=== PATIENT | female | born 1985 | race Caucasian/White ===

== ENCOUNTER 2016-11-06 06:07 | Inpatient (IN) | payer BC, OTHER ==
[2016-11-06] MEDS: LACTATED RINGERS 1,000 ML IV SCH ×2 (06:20→11:55)
[2016-11-06 06:47] LABS: Basophils % (A) 0 %; CH 33.1; CHCM 35.1; Eosinophils # (A) 0.2 k/uL (0-0.7); Eosinophils % (A) 2 %; HCT 39.9 % (34.0-46.0); HDW 2.38; HGB 13.6 gm/dL (11.4-16.0); Luc % (Auto) 1; Lymphocytes # (A) 1.8 k/uL (1.0-4.8); Lymphocytes % (A) 17 %; MCH 32.4 pg (25.0-35.0); MCHC 34.1 g/dL (31.0-37.0); MCV 94.9 fL (80.0-100.0); Monocytes # (A) 0.5 k/uL (0-1.0); Monocytes % (A) 5 %; Neutrophils % (A) 76 %; RDW 12.9 % (11.5-15.5); WBC 10.7 k/uL (3.8-10.6); WBC (Perox) 11.13
[2016-11-06] MEDS ORDERED: HYDROmorphone 1 MG/ML 1 ML SYRINGE IVP PRN (06:58)
[2016-11-06] MEDS: ACETAMINOPHEN TAB 325 MG TAB PO PRN ×2 (07:02→13:28)
[2016-11-06] MEDS: DIPHENOX-ATROP 2.5-0.025 MG 1 EACH TAB PO PRN ×2 (07:03→13:30)
[2016-11-06] MEDS: ONDANSETRON 4 MG/2 ML VIAL IVP PRN ×2 (07:03→13:27)
[2016-11-06] MEDS: CARBOPROST TROMETHAMINE 250 MCG/ML 1 ML AMP IM SCH ×5 (07:04→15:30)
[2016-11-06] MEDS: HYDROmorphone 1 MG/ML 1 ML SYRINGE IVP PRN ×3 (09:53→13:50)
[2016-11-06 13:54] LABS: Prothrombin Time 10.5 sec (9.0-12.0)
--- NOTE | 2016-11-06 16:55 | P.HPOB ---
History of Present Illness H&P Date: 11/06/16 Chief Complaint: demise 31 year old presents at 19 weeks by dates but 16 weeks by US with no heart tones. She is here for induction of labor. She had laminara placed yesterday afternoon and today she is FT-1/50/-3. Review of Systems All systems: negative Constitutional: Denies chills, Denies fever Eyes: denies blurred vision, denies pain Ears, nose, mouth and throat: Denies headache, Denies sore throat Cardiovascular: Denies chest pain, Denies shortness of breath Respiratory: Denies cough Gastrointestinal: Denies abdominal pain, Denies diarrhea, Denies nausea, Denies vomiting Genitourinary: Denies dysuria, Denies hematuria Musculoskeletal: Denies myalgias Integumentary: Denies pruritus, Denies rash Neurological: Denies numbness, Denies weakness Psychiatric: Denies anxiety, Denies depression Endocrine: Denies fatigue, Denies weight change Past Medical History Additional Past Medical History / Comment(s): smoker. OB history: she has had 2 c-sections and one elective termination. This is her fourth and she has had care with me since 11 weeks. B neg, abs neg, Rub Imm, RPR NR, Hep B neg, HIV NR. History of Any Multi-Drug Resistant Organisms: None Reported Past Surgical History: Appendectomy, Breast Surgery, Section Past Anesthesia/Blood Transfusion Reactions: No Reported Reaction Past Psychological History: No Psychological Hx Reported Smoking Status: Current every day smoker Past Alcohol Use History: None Reported Past Drug Use History: None Reported - Past Family History Mother Family Medical History: No Reported History Medications and Allergies Home Medications Medication Instructions Recorded Confirmed Type No Known Home Medications [No 11/06/16 11/06/16 History Known Home Medications] Allergies Allergy/AdvReac Type Severity Reaction Status Date / Time No Known Allergies Allergy Verified 11/06/16 06:11 Exam Osteopathic Statement: *. No significant issues noted on an osteopathic structural exam other than those noted in the History and Physical/Consult. - Vital Signs Vital signs: Vital Signs Temp Pulse Resp BP 11/06/16 06:15 98.4 F 87 18 140/78 Intake and Output 11/06/16 11/06/16 11/06/16 06:59 14:59 22:59 Other: # Voids 1 Weight 70.307 kg HEart: RRR Lungs: CTAB Abdomen: soft, nontender Extremeties: neg ranjeet's Results Result Diagrams: 11/06/16 06:15 Abnormal Lab Results - Last 24 Hours (Table) 11/06/16 Range/Units 06:15 WBC 10.7 H (3.8-10.6) k/uL Neutrophils # 8.0 H (1.3-7.7) k/uL Assessment and Plan (1) demise before 22 weeks with retention of fetus Status: Acute Plan: 1. admit to [facility] 2. hemobate induction of labor.
[2016-11-06] MEDS ORDERED: HYDROCORTISONE 2.5% RECTAL CREAM 30 GM TUBE RECTAL PRN (16:58)
[2016-11-06] MEDS ORDERED: BENZOCAINE/MENTHOL SPRAY 1 GM/SPRAY AEROSOL TOPICAL PRN (16:58)
[2016-11-06] MEDS ORDERED: ZOLPIDEM 5 MG TAB PO PRN (16:58)
[2016-11-06] MEDS ORDERED: LANOLIN CREAM 5 GM TUBE TOPICAL PRN (16:58)
[2016-11-06] MEDS ORDERED: WITCH HAZEL 1 EACH MED..PAD TOPICAL PRN (16:58)
[2016-11-06] MEDS ORDERED: diphenhydrAMINE 25 MG CAP PO PRN (16:58)
[2016-11-06] MEDS ORDERED: ACETAMINOPHEN TAB 325 MG TAB PO PRN (16:58)
[2016-11-06] MEDS ORDERED: diphenhydrAMINE 50 MG CAP PO PRN (16:58)
[2016-11-06] MEDS ORDERED: Acetaminophen-Codeine 300-30mg TAB PO PRN ×2 (16:58)
[2016-11-06] MEDS ORDERED: SIMETHICONE 80 MG CHEWABLE PO PRN (16:58)
[2016-11-06] MEDS ORDERED: diphenhydrAMINE 50 MG/ML 1 ML VIAL IVP PRN ×2 (16:58)
[2016-11-06] MEDS ORDERED: IBUPROFEN 600 MG TAB PO PRN (16:58)
--- NOTE | 2016-11-06 16:58 | P.PROBDLV ---
Vaginal Delivery Note - . Vaginal Delivery Note: 1-year-old presents for induction of labor at 19 weeks by EDC and 16 weeks by ultrasound for demise. She had an ultrasound in my office last week that showed absent heart tones and again yesterday absent heart tones. She had laminaria placed yesterday and so today her cervix is fingertip to 1 cm dilated, 50% effaced, and -3 station. Hemabate was given along with Tylenol Zofran and Imodium. After a few doses of this and her water did break. I came to evaluate her and when I did so she had some parts in the vagina. She pushed, and delivered a nonviable infant at 1638. The placenta delivered spontaneously intact at 1640. Vagina, cervix, perineum inspected. No lacerations noted. Estimated blood loss 100 mL.
[2016-11-06] MEDS ORDERED: OXYTOCIN 30 UNITS/500 ML NS 30 UNIT in SALINE 1 500ML.BAG IV SCH (17:00)
[2016-11-06] MEDS ORDERED: KETOROLAC 30 MG/ML 1 ML VIAL IVP SCH (18:00)
[2016-11-06 18:14] VITALS: RESP 16
[2016-11-06 18:59] VITALS: BP 110/58; PULSE 74; TEMP 98
[2016-11-06] MEDS ORDERED: Rhogam IMMUNE GLOBULIN 1,500 UNIT/1 ML IM ONE (19:04)
[2016-11-06] MEDS ORDERED: SENNOSIDES-DOCUSATE SODIUM 1 EACH TAB PO SCH (20:00)
--- NOTE | 2017-01-09 08:24 | P.DS ---
Providers Date of admission: 11/06/16 06:07 Expected date of discharge: 11/06/16 Attending physician: Teresa Gonzalez - Discharge Diagnosis(es) (1) demise before 22 weeks with retention of fetus Status: Acute Hospital Course: PAtient presented for induction of labor due to demise at 19 weeks. She underwent a vaginal delivery with no further complications. She was discharged home PPD #0 in stable condition to follow up with me in 6 weeks or earlier if needed. Plan - Discharge Summary New Discharge Prescriptions: Ibuprofen [Motrin] 800 mg PO Q8HR PRN #30 tab PRN Reason: Pain Discharge Medication List Ibuprofen [Motrin] 800 mg PO Q8HR PRN #30 tab 11/06/16 [Rx] Follow up Appointment(s)/Referral(s): Teresa Gonzalez DO [Doctor of Osteopathic Medicine] - 2 Weeks Discharge Disposition: HOME SELF-CARE
== END 2016-11-06 20:05 | disposition home or self-care (01) | DRG 779 ==
LOC: 4FBP 06:07
PROVIDERS: ADMIT Obstetrics & Gynecology; ATTEND Obstetrics & Gynecology
PROC: 10E0XZZ Delivery of Products of Conception, External Approach (ICD-10-PCS; principal; 2016-11-06)
PROC: 3E0234Z Introduction of Serum, Toxoid and Vaccine into Muscle, Percutaneous Approach (ICD-10-PCS; 2016-11-06)
PROC: 3E033VJ Introduction of Other Hormone into Peripheral Vein, Percutaneous Approach (ICD-10-PCS; 2016-11-06)
DX: O02.1 Missed abortion (principal); Z37.1 Single stillbirth; F17.200 Nicotine dependence, unspecified, uncomplicated; O99.332 Smoking (tobacco) complicating pregnancy, second trimester; O34.219 Maternal care for unspecified type scar from previous cesarean delivery; Z3A.19 19 weeks gestation of pregnancy; Z90.49 Acquired absence of other specified parts of digestive tract
CPT/HCPCS: 85025; 85610; 86850; 86900; 86901; 88300; 88305

== ENCOUNTER → 2017-09-11 | Outpatient (CLI) | payer BC | END | disposition home or self-care (01) | LOC: LABWHC1 13:16 | PROVIDERS: ATTEND Obstetrics & Gynecology | DX: Z34.90 Encounter for supervision of normal pregnancy, unspecified, unspecified trimester (principal); Z3A.00 Weeks of gestation of pregnancy not specified | CPT/HCPCS: 36415; 84702 ==

== ENCOUNTER → 2017-09-18 | Outpatient (CLI) | payer BC | END | disposition home or self-care (01) | LOC: LABWHC1 14:06 | PROVIDERS: ATTEND Obstetrics & Gynecology | DX: Z34.90 Encounter for supervision of normal pregnancy, unspecified, unspecified trimester (principal) | CPT/HCPCS: 36415; 84702 ==

== ENCOUNTER → 2018-04-12 | Outpatient (CLI) | payer BC | END | disposition home or self-care (01) | LOC: LABWHC1 15:51 | PROVIDERS: ATTEND Obstetrics & Gynecology | DX: Z34.80 Encounter for supervision of other normal pregnancy, unspecified trimester (principal) | CPT/HCPCS: 36415; 86850; 86900; 86901 ==

== ENCOUNTER 2018-04-13 07:52 | Emergency (ER) | payer BC ==
[2018-04-13 07:58] VITALS: TEMP 98.3
--- NOTE | 2018-04-13 08:22 | ED ---
General Adult HPI - General Chief complaint: Vaginal Bleeding Stated complaint: Vaginal Bleeding- Time Seen by Provider: 04/13/18 08:10 Source: patient, RN notes reviewed Mode of arrival: ambulatory Limitations: no limitations - History of Present Illness Initial comments: Patient G6, P2, 32-year-old female presented to the emergency room today with a chief complaint of vaginal bleeding that started yesterday. Patient does admit that she has some slight spotting yesterday talked her OB and was supposed to follow-up in the office in 2 days. She states spotting was heavier this morning. She does admit that she's had previous miscarriage and a stillborn . Patient states she is Rh-. She denies any abdominal cramping. She denies any other complaints or symptoms at this time. Patient denies any recent fever, chills, shortness of breath, chest pain, back pain, abdominal pain, nausea or vomiting, numbness or tingling, dysuria or hematuria, constipation or diarrhea, headaches or visual changes, or any other complaints. - Related Data Previous Rx's Medication Instructions Recorded Ibuprofen [Motrin] 800 mg PO Q8HR PRN #30 tab 11/06/16 Allergies Allergy/AdvReac Type Severity Reaction Status Date / Time No Known Allergies Allergy Verified 04/13/18 07:58 Review of Systems ROS Statement: Those systems with pertinent positive or pertinent negative responses have been documented in the HPI. ROS Other: All systems not noted in ROS Statement are negative. Past Medical History Additional Past Medical History / Comment(s): smoker. OB history: she has had 2 c-sections and one elective termination. This is her fourth and she has had care with me since 11 weeks. B neg, abs neg, Rub Imm, RPR NR, Hep B neg, HIV NR. History of Any Multi-Drug Resistant Organisms: None Reported Past Surgical History: Appendectomy, Breast Surgery, Section Past Anesthesia/Blood Transfusion Reactions: No Reported Reaction Past Psychological History: No Psychological Hx Reported Smoking Status: Current every day smoker Past Alcohol Use History: None Reported Past Drug Use History: None Reported - Past Family History Mother Family Medical History: No Reported History General Exam - General Exam Comments Initial Comments: General: The patient is awake and alert, in no distress, and does not appear acutely ill. Eye: Pupils are equal, round and reactive to light, extra-ocular movements are intact. No nystagmus. There is normal conjunctiva bilaterally. No signs of icterus. Ears, nose, mouth and throat: There are moist mucous membranes and no oral lesions. Neck: The neck is supple, there is no tenderness or JVD. Cardiovascular: There is a regular rate and rhythm. No murmur, rub or gallop is appreciated. Respiratory: Lungs are clear to auscultation, respirations are non-labored, breath sounds are equal. No wheezes, stridor, rales, or rhonchi. Gastrointestinal: Soft, non-distended, non-tender abdomen without masses or organomegaly noted. There is no rebound or guarding present. No CVA tenderness. Musculoskeletal: Normal ROM, no tenderness. Strength 5/5. Sensation intact. Neurological: A&O x 3. CN II-XII intact, There are no obvious motor or sensory deficits. Coordination appears grossly intact. Speech is normal. Skin: Skin is warm and dry and no rashes or lesions are noted. Psychiatric: Cooperative, appropriate mood & affect, normal judgment. Limitations: no limitations Course Vital Signs 04/13/18 07:54 Temperature 98.3 F Pulse Rate 89 Respiratory 18 Rate Blood Pressure 143/95 O2 Sat by Pulse 100 Oximetry Medical Decision Making - Medical Decision Making Patient's labs are been reviewed. Beta hCG 18,000. Rh-. Patient will be given Rhogam here in the emergency room. Patient's ultrasound does show a single IUP measuring 6 weeks 1 day. No heart tones at this time. Was discussed with patient about the possibility of a miscarriage versus early . Patient will have a repeat beta hCG in 2 days given a prescription for this. Advised follow-up the OB. Advised return if symptoms increase worsen. She states understanding and is in agreement with the plan. - Lab Data Result diagrams: 04/13/18 08:30 04/13/18 08:30 Lab Results 04/13/18 04/13/18 04/13/18 Range/Units 08:30 08:30 08:30 WBC 6.5 (3.8-10.6) k/uL RBC 4.40 (3.80-5.40) m/uL Hgb 14.5 (11.4-16.0) gm/dL Hct 42.5 (34.0-46.0) % MCV 96.6 (80.0-100.0) fL MCH 32.9 (25.0-35.0) pg MCHC 34.1 (31.0-37.0) g/dL RDW 14.4 (11.5-15.5) % Plt Count 198 (150-450) k/uL Neutrophils % 64 % Lymphocytes % 27 % Monocytes % 4 % Eosinophils % 3 % Basophils % 1 % Neutrophils # 4.1 (1.3-7.7) k/uL Lymphocytes # 1.8 (1.0-4.8) k/uL Monocytes # 0.3 (0-1.0) k/uL Eosinophils # 0.2 (0-0.7) k/uL Basophils # 0.0 (0-0.2) k/uL Sodium 140 (137-145) mmol/L Potassium 4.2 (3.5-5.1) mmol/L Chloride 107 (98-107) mmol/L Carbon Dioxide 21 L (22-30) mmol/L Anion Gap 12 mmol/L BUN 6 L (7-17) mg/dL Creatinine 0.40 L (0.52-1.04) mg/dL Est GFR (CKD-EPI)AfAm >90 (>60 ml/min/1.73 sqM) Est GFR (CKD-EPI)NonAf >90 (>60 ml/min/1.73 sqM) Glucose 91 (74-99) mg/dL Calcium 9.7 (8.4-10.2) mg/dL Total Bilirubin 0.5 (0.2-1.3) mg/dL AST 25 (14-36) U/L ALT 47 (9-52) U/L Alkaline Phosphatase 86 (38-126) U/L Total Protein 6.6 (6.3-8.2) g/dL Albumin 4.1 (3.5-5.0) g/dL HCG, Quant mIU/mL Urine Color Light Yellow Urine Appearance Cloudy H (Clear) Urine pH 7.0 (5.0-8.0) Ur Specific [place] 1.005 (1.001-1.035) Urine Protein Negative (Negative) Urine Glucose (UA) Negative (Negative) Urine Ketones Negative (Negative) Urine Blood Large H (Negative) Urine Nitrite Negative (Negative) Urine Bilirubin Negative (Negative) Urine Urobilinogen <2.0 (<2.0) mg/dL Ur Leukocyte Esterase Negative (Negative) Urine RBC <1 (0-5) /hpf Urine WBC 1 (0-5) /hpf Ur Squamous Epith Cells 3 (0-4) /hpf Urine Bacteria Rare H (None) /hpf Urine Mucus Rare H (None) /hpf Blood Type Blood Type Recheck Antibody Screen Spec Expiration Date 04/13/18 04/13/18 Range/Units 08:30 08:30 WBC (3.8-10.6) k/uL RBC (3.80-5.40) m/uL Hgb (11.4-16.0) gm/dL Hct (34.0-46.0) % MCV (80.0-100.0) fL MCH (25.0-35.0) pg MCHC (31.0-37.0) g/dL RDW (11.5-15.5) % Plt Count (150-450) k/uL Neutrophils % % Lymphocytes % % Monocytes % % Eosinophils % % Basophils % % Neutrophils # (1.3-7.7) k/uL Lymphocytes # (1.0-4.8) k/uL Monocytes # (0-1.0) k/uL Eosinophils # (0-0.7) k/uL Basophils # (0-0.2) k/uL Sodium (137-145) mmol/L Potassium (3.5-5.1) mmol/L Chloride (98-107) mmol/L Carbon Dioxide (22-30) mmol/L Anion Gap mmol/L BUN (7-17) mg/dL Creatinine (0.52-1.04) mg/dL Est GFR (CKD-EPI)AfAm (>60 ml/min/1.73 sqM) Est GFR (CKD-EPI)NonAf (>60 ml/min/1.73 sqM) Glucose (74-99) mg/dL Calcium (8.4-10.2) mg/dL Total Bilirubin (0.2-1.3) mg/dL AST (14-36) U/L ALT (9-52) U/L Alkaline Phosphatase (38-126) U/L Total Protein (6.3-8.2) g/dL Albumin (3.5-5.0) g/dL HCG, Quant 25939.7 mIU/mL Urine Color Urine Appearance (Clear) Urine pH (5.0-8.0) Ur Specific [place] (1.001-1.035) Urine Protein (Negative) Urine Glucose (UA) (Negative) Urine Ketones (Negative) Urine Blood (Negative) Urine Nitrite (Negative) Urine Bilirubin (Negative) Urine Urobilinogen (<2.0) mg/dL Ur Leukocyte Esterase (Negative) Urine RBC (0-5) /hpf Urine WBC (0-5) /hpf Ur Squamous Epith Cells (0-4) /hpf Urine Bacteria (None) /hpf Urine Mucus (None) /hpf Blood Type B Negative Blood Type Recheck No Antibody Screen NEGATIVE Spec Expiration Date 04/16/20182329 Disposition Clinical Impression: Threatened miscarriage Disposition: HOME SELF-CARE Condition: Good Instructions: Threatened Miscarriage (ED) Additional Instructions: Please have repeat blood draw in 2 days. Please follow-up with [facility] over the next 2 days. Please return to the emergency room symptoms increase or worsen or for any other concerns. Is patient prescribed a controlled substance at d/c from ED?: No Referrals: Amie Mcgarry MD [Primary Care Provider] - 1-2 days Teresa Gonzalez DO [Doctor of Osteopathic Medicine] - 1-2 days Time of Disposition: 10:24
[2018-04-13 08:47] LABS: Basophils % (A) 1 %; Eosinophils # (A) 0.2 k/uL (0-0.7); Eosinophils % (A) 3 %; HCT 42.5 % (34.0-46.0); HGB 14.5 gm/dL (11.4-16.0); Lymphocytes # (A) 1.8 k/uL (1.0-4.8); Lymphocytes % (A) 27 %; MCH 32.9 pg (25.0-35.0); MCHC 34.1 g/dL (31.0-37.0); MCV 96.6 fL (80.0-100.0); Mean Platelet Volume 7.5; Monocytes # (A) 0.3 k/uL (0-1.0); Monocytes % (A) 4 %; Neutrophils # (A) 4.1 k/uL (1.3-7.7); Neutrophils % (A) 64 %; Platelet Count 198 k/uL (150-450); RDW 14.4 % (11.5-15.5); WBC 6.5 k/uL (3.8-10.6)
[2018-04-13 08:55] LABS: Appearance,Urine Cloudy (Clear); Bacteria,Urine Rare /hpf; Bilirubin,Urine Negative (Negative); Blood,Urine Large (Negative); Color,Urine Light Yellow; Glucose,Urine (UA) Negative (Negative); Ketones,Urine Negative (Negative); Leukocyte Esterase,Urine Negative (Negative); Mucus,Urine Rare /hpf; Nitrite,Urine Negative (Negative); Protein,Urine Negative (Negative); RBC,Urine <1 /hpf (0-5); Specific Gravity,Urine 1.005 (1.001-1.035); Squamous Epithelial Cell,Urine 3 /hpf (0-4); Urobilinogen,Urine <2.0 mg/dL (<2.0); WBC,Urine 1 /hpf (0-5)
[2018-04-13 09:21] LABS: ALT 47 U/L (9-52); AST 25 U/L (14-36); Albumin 4.1 g/dL (3.5-5.0); Alkaline Phosphatase 86 U/L (38-126); Anion Gap 12 mmol/L; Blood Urea Nitrogen 6 mg/dL (7-17); Calcium 9.7 mg/dL (8.4-10.2); Carbon Dioxide 21 mmol/L (22-30); Chloride 107 mmol/L (98-107); Glucose 91 mg/dL (74-99); Potassium 4.2 mmol/L (3.5-5.1); Sodium 140 mmol/L (137-145); Total Bilirubin 0.5 mg/dL (0.2-1.3); Total Protein 6.6 g/dL (6.3-8.2)
--- NOTE | 2018-04-13 09:45 | US ---
EXAMINATION TYPE: Transabdominal DATE OF EXAM: 01/29/18 COMPARISON: NONE CLINICAL HISTORY: Pain. Spotting, history of several miscarriages. EXAM PERFORMED: Transvaginal (TV) and Transabdominal (TA) EXAM MEASUREMENTS: GESTATIONAL AGE / DATING Physician Established: not established Dates by LMP: patient guestamating ( 9 weeks/4 days) EDC: 11/12/2018 Dates by First Scan: No previous this is first scan Dates by Current Scan for: gestational sac measures 6 weeks 2 day. MATERNAL ANATOMY Uterus: 10.2 x 6.4 x 6.4cm Right Ovary: 4.2 x 2.6 x 4.3 cm Left Ovary: 3.2 x 1.7 x 2.5 cm Post CDS / Adnexa: wnl Presence of free fluid: none Presence of corpus luteal cyst: on right ovary, measures 2.6 x 1.5 x 1.6 cm GESTATION / SURVEY CRL: 0.5 (6 weeks/2 days) MSD: 1.76 (6 weeks/1 days) Yolk Sac (normal less than 6mm): 0.4 Heart Rate: not detected Date of LMP: unsure, patient guessing 02/05/2018 Beta HcG (if available): not available Gestational sac and yolk sac seen within uterus. There is a tiny pole measuring 6 weeks 2 days. No heart tones detected. Possible early IUP unable to detect heart tones yet versus missed AB. Need follow up. LMP and dates by gestational sac and pole do not correlate. IMPRESSION: INTRAUTERINE ; SONOGRAPHIC DATING CONSISTENT WITH 6 WEEKS 2 DAY GESTATION. FOLLOW-UP ULTRASO UND CHARACTERIZATION CAN FURTHER CHARACTERIZE.
[2018-04-13] MEDS ORDERED: Rhogam IMMUNE GLOBULIN 1,500 UNIT/1 ML IM ONE (09:56)
[2018-04-13 10:52] VITALS: BP 120/67; PULSE 98; RESP 16
== END 2018-04-13 10:50 | disposition home or self-care (01) ==
LOC: EC 07:52
DX: O20.0 Threatened abortion (principal); Z67.21 Type B blood, Rh negative; O99.331 Smoking (tobacco) complicating pregnancy, first trimester; F17.200 Nicotine dependence, unspecified, uncomplicated; Z98.890 Other specified postprocedural states; Z3A.01 Less than 8 weeks gestation of pregnancy
CPT/HCPCS: 36415; 86900; 86901; 80053; 85025; 86850; 81001; 84702; 87086; 87077; 87186; 76801; 76817; 90384; 99284; 96372; J2791

== ENCOUNTER → 2018-04-17 | Outpatient (CLI) | payer BC | END | disposition home or self-care (01) | LOC: LABWHC1 13:59 | PROVIDERS: ATTEND Obstetrics & Gynecology | DX: Z34.80 Encounter for supervision of other normal pregnancy, unspecified trimester (principal); Z3A.00 Weeks of gestation of pregnancy not specified | CPT/HCPCS: 36415; 84702 ==

== ENCOUNTER 2020-10-31 10:32 | Emergency (ER) | payer BC ==
[2020-10-31] MEDS ORDERED: SODIUM CHLORIDE 0.9% 500 ML 500 ML IV ONE (11:00)
[2020-10-31 12:05] LABS: Basophils # (A) 0.1 k/uL (0-0.2); Basophils % (A) 1 %; Eosinophils # (A) 0.2 k/uL (0-0.7); Eosinophils % (A) 2 %; HCT 36.2 % (34.0-46.0); HGB 12.9 gm/dL (11.4-16.0); Lymphocytes # (A) 1.3 k/uL (1.0-4.8); Lymphocytes % (A) 12 %; MCH 33.6 pg (25.0-35.0); MCHC 35.5 g/dL (31.0-37.0); MCV 94.5 fL (80.0-100.0); Mean Platelet Volume 8.7; Monocytes # (A) 0.5 k/uL (0-1.0); Monocytes % (A) 4 %; Neutrophils # (A) 8.8 k/uL (1.3-7.7); Neutrophils % (A) 80 %; Platelet Count 208 k/uL (150-450); RBC 3.83 m/uL (3.80-5.40); RDW 12.3 % (11.5-15.5)
--- NOTE | 2020-10-31 12:11 | US ---
EXAMINATION TYPE: US renals and bladder DATE OF EXAM: 10/31/2020 COMPARISON: CT 2013 CLINICAL HISTORY: left back and llq pain. Left flank and left pelvic pain x 1 wee k; history of renal stones; 16 weeks gestation; ; EXAM MEASUREMENTS: Right Kidney: 11.4 x 7.2 x 5.3 cm Left Kidney: 11.6 x 5.2 x 5.5 cm Post Void Residual Volume: not assessed on EC patient Right Kidney: Several shadowing renal stones seen with largest imaged lateral mid pole = 1.2 x 1.2 x 0.7cm. Left Kidney: cluster of shadowing renal stones seem mid pole = 1.6 x 1.0 x 0.5cm Bladder: wnl Bilateral Jets seen: yes Small stones and/or gallbladder sludge seen dependently. Several shadowing and nonshadowing nonobstru cting right renal calculi thought present. There is no evidence for hydronephrosis at this point in time. The urinary bladder is satisfactorily distended. Bilateral ureteral jets are seen. IMPRESSION: Probable bilateral nonobstructing renal calculi. No hydronephrosis however noted rianna fowler
--- NOTE | 2020-10-31 12:12 | US ---
EXAMINATION TYPE: US OB >= 14 wk fetus DATE OF EXAM: 10/31/2020 COMPARISON: None CLINICAL HISTORY: 15 wks llq pain Flank pain and left pelvic pain ; ; renal stones TECHNIQUE: Transabdominal (TA) GESTATIONAL AGE / DATING Physician Established: (5 weeks/4 days) EDC: 04/20/2021 Dates by LMP: LMP unknown Dates by First Scan: No previous for this Dates by Current Scan: (16 weeks/1 day) EDC: 04/16/2021 Beta HCG (if available): NA SURVEY IUP: Single PLACENTA: Anterior PREVIA: No Previa WERNER: 11.9 cm Normal CERVICAL LENGTH (transabdominal: norm > 3.0cm): 3.3 cm BIOMETRY PRESENTATION: Breech LIE: Oblique BPD: 3.4 cm 16 weeks / 3 days HC: 11.7 cm 15 weeks / 5 days AC: 10.0 cm 16 weeks / 0 days FL: 1.9 cm 15 weeks / 5 days ESTIMATED WEIGHT IN GRAMS: 137.42 grams ESTIMATED WEIGHT IN LBS/OZ: 0 lbs. 5 oz. WEIGHT PERCENTAGE BASED ON ESTABLISHED DATES: 60.6% HC/AC: 1.17 Normal FL/AC: 19.1 Normal HEART RATE: 165 bpm RHYTHM: Normal Single, live IUP, 16 weeks/1 day, EDC: 04/16/2021, HR 165bpm. Single live intrauterine gestation. Early second trimester gestation noted. No cervical thinning. Kamryn ech presentation currently. Calculated amniotic fluid index within normal limits. biometry brad urements congruent and within normal limits. IMPRESSION: As above.
[2020-10-31 12:13] LABS: ALT 16 U/L (4-34); AST 18 U/L (14-36); African American GFR (CKD) >90 (>60 ml/min/1.73 sqM); Albumin 3.6 g/dL (3.5-5.0); Alkaline Phosphatase 79 U/L (38-126); Amylase 63 U/L (30-110); Anion Gap 4 mmol/L; Blood Urea Nitrogen 7 mg/dL (7-17); Calcium 8.8 mg/dL (8.4-10.2); Carbon Dioxide 24 mmol/L (22-30); Chloride 107 mmol/L (98-107); Glucose 81 mg/dL (74-99); Lipase 63 U/L (23-300); Non-African American GFR(CKD) >90 (>60 ml/min/1.73 sqM); Potassium 4.1 mmol/L (3.5-5.1); Sodium 135 mmol/L (137-145); Total Bilirubin 0.4 mg/dL (0.2-1.3); Total Protein 6.6 g/dL (6.3-8.2)
[2020-10-31 12:20] LABS: Appearance,Urine Cloudy (Clear); Bacteria,Urine Occasional /hpf; Bilirubin,Urine Negative (Negative); Blood,Urine Negative (Negative); Color,Urine Yellow; Glucose,Urine (UA) Negative (Negative); Ketones,Urine Negative (Negative); Leukocyte Esterase,Urine Large (Negative); Mucus,Urine Occasional /hpf; Nitrite,Urine Negative (Negative); Protein,Urine Negative (Negative); RBC,Urine 3 /hpf (0-5); Squamous Epithelial Cell,Urine 5 /hpf (0-4); Urobilinogen,Urine <2.0 mg/dL (<2.0); WBC,Urine 21 /hpf (0-5)
--- NOTE | 2020-10-31 12:34 | ED ---
General Adult HPI - General Chief complaint: Back Pain/Injury Stated complaint: 15wks preg, pelvic pain Time Seen by Provider: 10/31/20 10:47 Source: patient Mode of arrival: ambulatory Limitations: no limitations - History of Present Illness Initial comments: A [age] or female currently ~ 15 weeks presenting today for chief complaint of lower abdominal pain and bilateral lower back x 3 days. She states the past 3 days she has had some lower abdominal discomfort and like and at times left lower quadrant. Patient states she has bandlike low back pain. Patient states that she has had a lot of miscarriages in his nurse about the . Patient states she also felt her upper abdominal hernia "popped the other day. Patient states it still feels soft and has not changed and tenderness. She states this is really not a concern but she figured she would mention it. Patient denies any fevers chills constipation nausea vomiting. Patient states that she has had a kidney stone the past but this does not feel similar. Patient denies noting any dysuria urgency frequency hematuria. Patient has no additional complaints she denies any vaginal bleeding vaginal discharge. OBGYN Dr. Gonzalez. Pt states last US was "good" - Related Data Home Medications Medication Instructions Recorded Confirmed Aspirin EC [Ecotrin Low Dose] 81 mg PO DAILY 10/31/20 10/31/20 Progesterone, Micronized 200 mg PO DAILY 10/31/20 10/31/20 [Progesterone] Previous Rx's Medication Instructions Recorded Cephalexin [Keflex] 500 mg PO Q6HR 7 Days #28 cap 10/31/20 Allergies Allergy/AdvReac Type Severity Reaction Status Date / Time No Known Allergies Allergy Verified 10/31/20 12:16 Review of Systems ROS Statement: Those systems with pertinent positive or pertinent negative responses have been documented in the HPI. ROS Other: All systems not noted in ROS Statement are negative. Past Medical History Additional Past Medical History / Comment(s): smoker. OB history: she has had 2 c-sections and one elective termination. This is her fourth and she has had care with me since 11 weeks. B neg, abs neg, Rub Imm, RPR NR, Hep B neg, HIV NR. History of Any Multi-Drug Resistant Organisms: None Reported Past Surgical History: Appendectomy, Breast Surgery, Section Past Anesthesia/Blood Transfusion Reactions: No Reported Reaction Past Psychological History: No Psychological Hx Reported Smoking Status: Current every day smoker Past Alcohol Use History: None Reported Past Drug Use History: None Reported - Past Family History Mother Family Medical History: No Reported History General Exam - General Exam Comments Initial Comments: General: The patient is awake and alert, in no distress, and does not appear acutely ill. Eye: Pupils are equal, round and reactive to light, extra-ocular movements are intact. No nystagmus. There is normal conjunctiva bilaterally. No signs of icterus. Ears, nose, mouth and throat: There are moist mucous membranes and no oral lesions. Neck: The neck is supple, there is no tenderness or JVD. Cardiovascular: There is a regular rate and rhythm. No murmur, rub or gallop is appreciated. Respiratory: Lungs are clear to auscultation, respirations are non-labored, breath sounds are equal. No wheezes, stridor, rales, or rhonchi. Gastrointestinal: [Soft, non-distended, palpable mid center abdomen, reducible nontender ventral hernia. no discoloration. mild bilateral lower abdominal pain, L > R. Also present midline lower pelvic, abdomen without masses.. There is no rebound or guarding present. No CVA tenderness. Musculoskeletal: Normal ROM, no tenderness. Strength 5/5. Sensation intact. Pulses equal bilaterally 2+. Neurological: A&O x 3. CN II-XII intact grossly, There are no obvious motor or sensory deficits. Coordination appears grossly intact. Speech is normal. Skin: Skin is warm and dry and no rashes or lesions are noted. Psychiatric: Cooperative, appropriate mood & affect, normal judgment. Limitations: no limitations Course Vital Signs 10/31/20 10/31/20 10:41 12:34 Temperature 98.6 F 98.2 F Pulse Rate 91 83 Respiratory 18 16 Rate Blood Pressure 133/81 101/69 O2 Sat by Pulse 99 100 Oximetry Medical Decision Making - Medical Decision Making Mild leukocytosis expected at 15wks. no fevers. UA concerning infection. pt has no vomiting. pt given rocephin in ER. US (-) for complicating process. no stone on renal/bladder US. Patient statse she feel safe going home with outpatient OBGYN f/u. Refused pevlic despite discussing how this would provide the most thorough evaluation. pt discharged appearing well after discussing case/ labs/exam with Dr> Ronnie. - Lab Data Result diagrams: 10/31/20 11:52 10/31/20 11:52 Lab Results 10/31/20 10/31/20 10/31/20 Range/Units 11:52 11:52 11:52 WBC 11.0 H (3.8-10.6) k/uL RBC 3.83 (3.80-5.40) m/uL Hgb 12.9 (11.4-16.0) gm/dL Hct 36.2 (34.0-46.0) % MCV 94.5 (80.0-100.0) fL MCH 33.6 (25.0-35.0) pg MCHC 35.5 (31.0-37.0) g/dL RDW 12.3 (11.5-15.5) % Plt Count 208 (150-450) k/uL MPV 8.7 Neutrophils % 80 % Lymphocytes % 12 % Monocytes % 4 % Eosinophils % 2 % Basophils % 1 % Neutrophils # 8.8 H (1.3-7.7) k/uL Lymphocytes # 1.3 (1.0-4.8) k/uL Monocytes # 0.5 (0-1.0) k/uL Eosinophils # 0.2 (0-0.7) k/uL Basophils # 0.1 (0-0.2) k/uL Sodium 135 L (137-145) mmol/L Potassium 4.1 (3.5-5.1) mmol/L Chloride 107 (98-107) mmol/L Carbon Dioxide 24 (22-30) mmol/L Anion Gap 4 mmol/L BUN 7 (7-17) mg/dL Creatinine 0.36 L (0.52-1.04) mg/dL Est GFR (CKD-EPI)AfAm >90 (>60 ml/min/1.73 sqM) Est GFR (CKD-EPI)NonAf >90 (>60 ml/min/1.73 sqM) Glucose 81 (74-99) mg/dL Plasma Lactic Acid [place] (0.7-2.0) mmol/L Calcium 8.8 (8.4-10.2) mg/dL Total Bilirubin 0.4 (0.2-1.3) mg/dL AST 18 (14-36) U/L ALT 16 (4-34) U/L Alkaline Phosphatase 79 (38-126) U/L Total Protein 6.6 (6.3-8.2) g/dL Albumin 3.6 (3.5-5.0) g/dL Amylase 63 (30-110) U/L Lipase 63 (23-300) U/L Urine Color Yellow Urine Appearance Cloudy H (Clear) Urine pH 7.0 (5.0-8.0) Ur Specific [place] 1.010 (1.001-1.035) Urine Protein Negative (Negative) Urine Glucose (UA) Negative (Negative) Urine Ketones Negative (Negative) Urine Blood Negative (Negative) Urine Nitrite Negative (Negative) Urine Bilirubin Negative (Negative) Urine Urobilinogen <2.0 (<2.0) mg/dL Ur Leukocyte Esterase Large H (Negative) Urine RBC 3 (0-5) /hpf Urine WBC 21 H (0-5) /hpf Ur Squamous Epith Cells 5 H (0-4) /hpf Urine Bacteria Occasional H (None) /hpf Urine Mucus Occasional H (None) /hpf Blood Type Blood Type Recheck Bld Type Recheck Status 10/31/20 10/31/20 Range/Units 11:52 12:37 WBC (3.8-10.6) k/uL RBC (3.80-5.40) m/uL Hgb (11.4-16.0) gm/dL Hct (34.0-46.0) % MCV (80.0-100.0) fL MCH (25.0-35.0) pg MCHC (31.0-37.0) g/dL RDW (11.5-15.5) % Plt Count (150-450) k/uL MPV Neutrophils % % Lymphocytes % % Monocytes % % Eosinophils % % Basophils % % Neutrophils # (1.3-7.7) k/uL Lymphocytes # (1.0-4.8) k/uL Monocytes # (0-1.0) k/uL Eosinophils # (0-0.7) k/uL Basophils # (0-0.2) k/uL Sodium (137-145) mmol/L Potassium (3.5-5.1) mmol/L Chloride (98-107) mmol/L Carbon Dioxide (22-30) mmol/L Anion Gap mmol/L BUN (7-17) mg/dL Creatinine (0.52-1.04) mg/dL Est GFR (CKD-EPI)AfAm (>60 ml/min/1.73 sqM) Est GFR (CKD-EPI)NonAf (>60 ml/min/1.73 sqM) Glucose (74-99) mg/dL Plasma Lactic Acid [place] 0.8 (0.7-2.0) mmol/L Calcium (8.4-10.2) mg/dL Total Bilirubin (0.2-1.3) mg/dL AST (14-36) U/L ALT (4-34) U/L Alkaline Phosphatase (38-126) U/L Total Protein (6.3-8.2) g/dL Albumin (3.5-5.0) g/dL Amylase (30-110) U/L Lipase (23-300) U/L Urine Color Urine Appearance (Clear) Urine pH (5.0-8.0) Ur Specific [place] (1.001-1.035) Urine Protein (Negative) Urine Glucose (UA) (Negative) Urine Ketones (Negative) Urine Blood (Negative) Urine Nitrite (Negative) Urine Bilirubin (Negative) Urine Urobilinogen (<2.0) mg/dL Ur Leukocyte Esterase (Negative) Urine RBC (0-5) /hpf Urine WBC (0-5) /hpf Ur Squamous Epith Cells (0-4) /hpf Urine Bacteria (None) /hpf Urine Mucus (None) /hpf Blood Type B Negative Blood Type Recheck B Neg Bld Type Recheck Status [facility] ONLY Disposition Clinical Impression: Back pain, LLQ pain, Ventral hernia, UTI (urinary tract infection) Disposition: HOME SELF-CARE Condition: Good Instructions (If sedation given, give patient instructions): Urinary Tract Infection in (ED) Additional Instructions: Please use medication as discussed. Please follow-up with OBGYN in next week, call Dr. Gonzalez tomorrow to discuss the ER visit/scheduled appropriate follow- up. Please return to emergency room if the symptoms increase or worsen or for any other concerns. Prescriptions: Cephalexin [Keflex] 500 mg PO Q6HR 7 Days #28 cap Is patient prescribed a controlled substance at d/c from ED?: No Referrals: Amie Mcgarry MD [Primary Care Provider] - 1-2 days Teresa Gonzalez DO [Family Provider] - 1-2 days Time of Disposition: 12:33
[2020-10-31 12:37] VITALS: BP 101/69; PULSE 83; RESP 16; TEMP 98.2
[2020-10-31] MEDS ORDERED: ACETAMINOPHEN TAB 325 MG TAB PO STA (13:08)
== END 2020-10-31 13:30 | disposition home or self-care (01) ==
LOC: EC 10:32
DX: O23.42 Unspecified infection of urinary tract in pregnancy, second trimester (principal); O99.612 Diseases of the digestive system complicating pregnancy, second trimester; K43.9 Ventral hernia without obstruction or gangrene; O99.332 Smoking (tobacco) complicating pregnancy, second trimester; F17.200 Nicotine dependence, unspecified, uncomplicated; Z90.49 Acquired absence of other specified parts of digestive tract; Z3A.16 16 weeks gestation of pregnancy
CPT/HCPCS: 36415; 86900; 86901; 80053; 82150; 83605; 83690; 85025; 81001; 87086; 76805; 76770; 99284; 96365; 96361; J0696; 87077; 87186

== ENCOUNTER 2021-04-13 06:00 | Inpatient (IN) | payer BC, OTHER ==
[2021-04-12 15:02] VITALS: BMI 34.2
[2021-04-13] MEDS ORDERED: CITRIC ACID-SODIUM CITRATE 15 ML CUP PO ONE (06:10)
[2021-04-13] MEDS: LACTATED RINGERS 1,000 ML IV SCH ×4 (06:25→17:37)
[2021-04-13 06:43] LABS: Basophils # (A) 0.1 k/uL (0-0.2); Basophils % (A) 0 %; Eosinophils # (A) 0.2 k/uL (0-0.7); Eosinophils % (A) 2 %; HCT 32.2 % (34.0-46.0); HGB 11.6 gm/dL (11.4-16.0); Lymphocytes # (A) 1.6 k/uL (1.0-4.8); Lymphocytes % (A) 14 %; MCH 33.3 pg (25.0-35.0); MCHC 35.9 g/dL (31.0-37.0); MCV 92.6 fL (80.0-100.0); Mean Platelet Volume 9.1; Monocytes # (A) 0.5 k/uL (0-1.0); Monocytes % (A) 5 %; Neutrophils # (A) 8.7 k/uL (1.3-7.7); Neutrophils % (A) 78 %; Platelet Count 156 k/uL (150-450); RBC 3.47 m/uL (3.80-5.40); RDW 13.7 % (11.5-15.5); WBC 11.1 k/uL (3.8-10.6)
[2021-04-13] MEDS ORDERED: FAMOTIDINE 20 MG/2 ML VIAL IV PRN (07:00)
--- NOTE | 2021-04-13 07:06 | P.HPOB ---
History of Present Illness H&P Date: 04/13/21 Chief Complaint: repeat low transverse with tubal ligation 35-year-old presents at 39 weeks for repeat low transverse and tubal ligation. Review of Systems All systems: negative Constitutional: Denies chills, Denies fever Eyes: denies blurred vision, denies pain Ears, nose, mouth and throat: Denies headache, Denies sore throat Cardiovascular: Denies chest pain, Denies shortness of breath Respiratory: Denies cough Gastrointestinal: Denies abdominal pain, Denies diarrhea, Denies nausea, Denies vomiting Genitourinary: Denies dysuria, Denies hematuria Musculoskeletal: Denies myalgias Integumentary: Denies pruritus, Denies rash Neurological: Denies numbness, Denies weakness Psychiatric: Denies anxiety, Denies depression Endocrine: Denies fatigue, Denies weight change Past Medical History Additional Past Medical History / Comment(s): FREQUENT UTI"S, GERD DURING P REGNANCY. History of Any Multi-Drug Resistant Organisms: None Reported Past Surgical History: Appendectomy, Breast Surgery, Section Additional Past Surgical History / Comment(s): SURGERY FOR RUPTURED OVARIAN ABSCESS WITH APPENDECTOMY Past Anesthesia/Blood Transfusion Reactions: No Reported Reaction, Motion Sickness Past Psychological History: No Psychological Hx Reported Smoking Status: Current every day smoker Past Alcohol Use History: None Reported Additional Past Alcohol Use History / Comment(s): SMOKES 1/2 PPD, STARTED SMOKING AGE 13-14. Past Drug Use History: None Reported - Past Family History Mother Family Medical History: No Reported History Medications and Allergies Home Medications Medication Instructions Recorded Confirmed Type Aspirin EC [Ecotrin Low Dose] 81 mg PO DAILY 10/31/20 04/13/21 History Pedi Multivit No.25/Folic Acid 2 tab PO DAILY 04/12/21 04/13/21 History [Flintstones Multivit Chew Tab] Allergies Allergy/AdvReac Type Severity Reaction Status Date / Time No Known Allergies Allergy Verified 04/13/21 06:09 Exam Osteopathic Statement: *. No significant issues noted on an osteopathic structural exam other than those noted in the History and Physical/Consult. Vital Signs Temp Pulse Resp BP Pulse Ox 04/13/21 06:18 97.7 F 102 H 16 136/68 97 Intake and Output 04/12/21 04/13/2121 22:59 06:59 14:59 Other: Weight 86.183 kg Heart: Regular rate and rhythm Lungs: Clear to auscultation bilaterally Abdomen: Soft, nontender Extremities: Negative Homans sign Results Result Diagrams: 04/13/21 06:24 Abnormal Lab Results - Last 24 Hours (Table) 04/13/21 Range/Units 06:24 WBC 11.1 H (3.8-10.6) k/uL RBC 3.47 L (3.80-5.40) m/uL Hct 32.2 L (34.0-46.0) % Neutrophils # 8.7 H (1.3-7.7) k/uL Assessment and Plan (1) Previous section Current Visit: Yes Status: Acute Code(s): Z98.891 - HISTORY OF UTERINE SCAR FROM PREVIOUS SURGERY SNOMED Code(s): 346669329 (2) Family planning Current Visit: Yes Status: Acute Code(s): Z30.09 - ENCOUNTER FOR OT GENERAL CNSL AND ADVICE ON CONTRACEPTION SNOMED Code(s): 392461903 (3) Advanced maternal age (AMA) in Current Visit: Yes Status: Acute Code(s): DSD7588 - SNOMED Code(s): 394753235 Plan: 1. Repeat low transverse with tubal ligation
[2021-04-13] MEDS ORDERED: diphenhydrAMINE 50 MG/ML 1 ML VIAL ONE (08:20)
[2021-04-13] MEDS ORDERED: ONDANSETRON 4 MG/2 ML VIAL ONE (08:20)
[2021-04-13] MEDS ORDERED: DEXAMETHASONE SOD PHOSPHATE 10 MG/ML 1 ML VIAL ONE (08:20)
[2021-04-13] MEDS ORDERED: NALBUPHINE 10 MG/ML (1 ML AMP) ONE (08:20)
[2021-04-13] MEDS ORDERED: OXYTOCIN 30 UNITS/500 ML NS BAG IV ONE (08:20)
[2021-04-13] MEDS ORDERED: fentaNYL (PF) 50 MCG/ML 2 ML AMP ONE (08:20)
[2021-04-13] MEDS ORDERED: MORPHINE SULFATE (PF) 0.3 MG/0.3 ML SYR ONE (08:20)
[2021-04-13] MEDS ORDERED: KETOROLAC 15 MG/ML 1 ML VIAL ONE (08:20)
[2021-04-13] MEDS ORDERED: METOCLOPRAMIDE 5 MG/ML 2 ML VIAL IVP PRN (09:01)
[2021-04-13] MEDS ORDERED: diphenhydrAMINE 50 MG/ML 1 ML VIAL IVP PRN ×2 (09:01)
[2021-04-13] MEDS ORDERED: ZOLPIDEM 5 MG TAB PO PRN (09:01)
[2021-04-13] MEDS ORDERED: LANOLIN CREAM 5 GM TUBE TOPICAL PRN (09:01)
[2021-04-13] MEDS ORDERED: diphenhydrAMINE 25 MG CAP PO PRN (09:01)
[2021-04-13] MEDS ORDERED: NALOXONE 0.4 MG/ML 1 ML VIAL IV PRN (09:01)
[2021-04-13] MEDS ORDERED: ONDANSETRON 4 MG/2 ML VIAL IVP PRN (09:01)
[2021-04-13] MEDS ORDERED: diphenhydrAMINE 50 MG CAP PO PRN (09:01)
[2021-04-13] MEDS ORDERED: OXYTOCIN 30 UNITS/500 ML NS 30 UNIT in SALINE 1 500ML.BAG IV SCH (09:15)
[2021-04-13] MEDS: LACTATED RINGERS 1,000 ML IV ONE ×2 (09:41→16:24)
[2021-04-13] MEDS ORDERED: HYDROmorphone 1 MG/ML 1 ML SYRINGE IVP PRN (10:47)
[2021-04-13] MEDS: ACETAMINOPHEN TAB 500 MG TAB PO SCH ×2 (13:24→19:02)
[2021-04-13] MEDS: KETOROLAC 15 MG/ML 1 ML VIAL IVP SCH ×2 (16:23→21:49)
[2021-04-13] MEDS ORDERED: Rhogam IMMUNE GLOBULIN 1,500 UNIT/1 ML IM ONE (16:24)
[2021-04-13] MEDS: NICOTINE 21MG/24HR PATCH TRANSDERM SCH (17:36)
[2021-04-13] MEDS: SENNOSIDES-DOCUSATE SODIUM 1 EACH TAB PO SCH (21:52)
[2021-04-14] MEDS: LACTATED RINGERS 1,000 ML IV SCH ×2 (00:03→06:25)
[2021-04-14] MEDS: ACETAMINOPHEN TAB 500 MG TAB PO SCH ×4 (01:22→21:14)
[2021-04-14] MEDS: KETOROLAC 15 MG/ML 1 ML VIAL IVP SCH (03:42)
--- NOTE | 2021-04-14 07:47 | P.PNOBGPC ---
Subjective - Subjective Principal diagnosis: Status post repeat low transverse with tubal ligation postop day Interval history: Patient seen and examined. Denies nausea, vomiting, chest pain, shortness of breath or any calf pain. She is having some distention from gas. Patient reports: Reports appetite normal, Reports voiding normally, Reports pain well controlled, Reports ambulating normally Twain: doing well Objective - Vital Signs Latest vital signs: Vital Signs Temp Pulse Resp BP Pulse Ox 04/14/21 03:50 98.4 F 81 16 124/75 96 04/14/21 00:00 97.8 F 75 16 115/69 97 04/13/21 19:15 97.6 F 94 16 116/71 97 04/13/21 16:00 97.9 F 87 16 114/52 04/13/21 12:00 98.2 F 75 16 110/68 04/13/21 11:08 97.1 F L 69 16 110/59 04/13/21 10:38 97.2 F L 70 17 134/57 98 04/13/21 10:06 17 97 04/13/21 09:53 63 17 116/58 98 04/13/21 09:38 74 18 105/57 98 04/13/21 09:23 88 18 113/64 97 04/13/21 09:08 97.5 F L 87 18 118/65 94 L Intake and Output 04/13/21 04/14/21 04/14/21 22:59 06:59 14:59 Output Total 100 500 Balance -100 -500 Output: Urine 100 500 Uretheral (Jackson) 100 Other: # Voids 0 1 - Exam Lungs: bilateral: normal Chest: Normal S1, Normal S2 Extremities: Present: normal Abdomen: Present: normal appearance, soft. Absent: distention, tenderness Incision: Present: normal, dry, intact Uterus: Present: normal, firm Assessment and Plan (1) Previous section Current Visit: Yes Status: Resolved Code(s): Z98.891 - HISTORY OF UTERINE SCAR FROM PREVIOUS SURGERY SNOMED Code(s): 583650908 (2) Family planning Current Visit: Yes Status: Resolved Code(s): Z30.09 - ENCOUNTER FOR OT GENERAL CNSL AND ADVICE ON CONTRACEPTION SNOMED Code(s): 462659219 (3) Advanced maternal age (AMA) in Current Visit: Yes Status: Resolved Code(s): TVN0383 - SNOMED Code(s): 130643052 (4) Status post repeat low transverse section Current Visit: Yes Status: Acute Code(s): Z98.891 - HISTORY OF UTERINE SCAR FROM PREVIOUS SURGERY SNOMED Code(s): 511163977 (5) Status post tubal ligation at time of delivery, current hosp Current Visit: Yes Status: Acute Code(s): O80 - ENCOUNTER FOR FULL-TERM UNCOMPLICATED DELIVERY; Z30.2 - ENCOUNTER FOR STERILIZATION SNOMED Code(s): 275251701 Plan: 1. Increase ambulation 2. By mouth pain medication 3. Regular diet with flatus
[2021-04-14] MEDS: IBUPROFEN 600 MG TAB PO SCH ×3 (07:51→22:08)
[2021-04-14] MEDS: SENNOSIDES-DOCUSATE SODIUM 1 EACH TAB PO SCH ×2 (07:51→20:14)
[2021-04-14] MEDS: SIMETHICONE 80 MG CHEWABLE PO PRN ×2 (07:51→16:11)
[2021-04-14 08:06] LABS: Basophils % (A) 0 %; Eosinophils # (A) 0.1 k/uL (0-0.7); Eosinophils % (A) 1 %; HCT 24.9 % (34.0-46.0); Lymphocytes % (A) 15 %; MCH 34.1 pg (25.0-35.0); MCHC 36.6 g/dL (31.0-37.0); MCV 93.3 fL (80.0-100.0); Mean Platelet Volume 9.8; Monocytes # (A) 0.8 k/uL (0-1.0); Monocytes % (A) 6 %; Neutrophils # (A) 10.1 k/uL (1.3-7.7); Neutrophils % (A) 77 %; Platelet Count 146 k/uL (150-450); RBC 2.67 m/uL (3.80-5.40); RDW 13.7 % (11.5-15.5); WBC 13.1 k/uL (3.8-10.6)
[2021-04-14 08:20] LABS: HGB 9.1 gm/dL (11.4-16.0)
[2021-04-14] MEDS: NICOTINE 21MG/24HR PATCH TRANSDERM SCH (17:58)
[2021-04-14] MEDS ORDERED: HYDROcodone/APAP 5-325MG 1 EACH TAB PO PRN (19:57)
[2021-04-14] MEDS: HYDROcodone/APAP 5-325MG 1 EACH TAB PO PRN (20:12)
[2021-04-15] MEDS: HYDROcodone/APAP 5-325MG 1 EACH TAB PO PRN ×2 (00:13→06:44)
[2021-04-15] MEDS: ACETAMINOPHEN TAB 500 MG TAB PO SCH ×2 (01:35→06:01)
[2021-04-15] MEDS: IBUPROFEN 600 MG TAB PO SCH ×2 (04:02→09:59)
--- NOTE | 2021-04-15 07:39 | P.DS ---
Providers Date of admission: 04/13/21 06:00 Expected date of discharge: 04/15/21 Attending physician: Teresa Gonzalez Primary care physician: Stated None - Discharge Diagnosis(es) (1) Previous section Current Visit: Yes Status: Resolved (2) Family planning Current Visit: Yes Status: Resolved (3) Advanced maternal age (AMA) in Current Visit: Yes Status: Resolved (4) Status post repeat low transverse section Current Visit: Yes Status: Acute (5) Status post tubal ligation at time of delivery, current hosp Current Visit: Yes Status: Acute Hospital Course: Patient presented for repeat low transverse and tubal ligation. She underwent this procedure without complication. Her pain was not controlled on Tylenol and Motrin so she was switched and [place] and Motrin. She is passing flatus and tolerating regular diet. Ambulating voiding without difficulty. Her incision is clean, dry, intact. She'll be discharged home postoperative day #2 in stable condition to follow-up with me in one week. Plan - Discharge Summary New Discharge Prescriptions: New HYDROcodone/APAP 7.5-325MG [[place] 7.5-325] 1 tab PO Q4H PRN 3 Days #18 tab PRN Reason: Pain Ibuprofen [Motrin] 600 mg PO Q6HR #40 tab No Action Aspirin EC [Ecotrin Low Dose] 81 mg PO DAILY Pedi Multivit No.25/Folic Acid [Flintstones Multivit Chew Tab] 2 tab PO DAILY Discharge Medication List Aspirin EC [Ecotrin Low Dose] 81 mg PO DAILY 10/31/20 [History] Pedi Multivit No.25/Folic Acid [Flintstones Multivit Chew Tab] 2 tab PO DAILY 04/12/21 [History] HYDROcodone/APAP 7.5-325MG [[place] 7.5-325] 1 tab PO Q4H PRN 3 Days #18 tab 04/15/21 [Rx] Ibuprofen [Motrin] 600 mg PO Q6HR #40 tab 04/15/21 [Rx] Follow up Appointment(s)/Referral(s): Teresa Gonzalez DO [Doctor of Osteopathic Medicine] - 04/25/21 1:30 pm (Post appointment 05-23-2021 at 10:45) Discharge Disposition: HOME SELF-CARE
[2021-04-15 08:31] VITALS: BP 108/72; PULSE 84; RESP 16; TEMP 98
[2021-04-15] MEDS: SENNOSIDES-DOCUSATE SODIUM 1 EACH TAB PO SCH (09:59)
== END 2021-04-15 10:45 | disposition home or self-care (01) | DRG 798 ==
LOC: 4FBP 06:00
PROVIDERS: ADMIT Obstetrics & Gynecology; ATTEND Obstetrics & Gynecology
PROC: 10E0XZZ Delivery of Products of Conception, External Approach (ICD-10-PCS; principal; 2021-04-14)
PROC: 0UB70ZZ Excision of Bilateral Fallopian Tubes, Open Approach (ICD-10-PCS; 2021-04-14)
DX: O34.211 Maternal care for low transverse scar from previous cesarean delivery (principal); Z37.0 Single live birth; F17.200 Nicotine dependence, unspecified, uncomplicated; O99.334 Smoking (tobacco) complicating childbirth; Z30.2 Encounter for sterilization; Z3A.39 39 weeks gestation of pregnancy; Z79.82 Long term (current) use of aspirin; Z87.440 Personal history of urinary (tract) infections
CPT/HCPCS: 85025; 85461; 86850; 86870; 86880; 86900; 86901; 88302

== ENCOUNTER 2022-06-16 05:07 | Emergency (ER) | payer OTHER ==
[2022-06-16 05:17] VITALS: TEMP 97.7
[2022-06-16] MEDS ORDERED: KETOROLAC 15 MG/ML 1 ML VIAL IVP STA (06:01)
[2022-06-16] MEDS ORDERED: DEXAMETHASONE SOD PHOSPHATE 10 MG/ML 1 ML VIAL IVP STA (06:01)
--- NOTE | 2022-06-16 06:25 | ED ---
Extremity Problem HPI - General Chief complaint: Extremity Problem,Nontraumatic Stated complaint: Hand Pain Time Seen by Provider: 06/16/22 05:55 Source: patient, RN notes reviewed Mode of arrival: ambulatory Limitations: no limitations - History of Present Illness Initial comments: This is a 37-year-old female who presents to the emergency department for bilateral hand pain and numbness. Patient states that she's been told she has carpal tunnel problems since she was 17 years old. She has numbness and pain in fingers 3 and 4 on the hands bilaterally. The right hand is worse than the left. The pain is going up into her elbows. States that when this occurs, she is usually able to reposition her arms and relieve the symptoms. However, her symptoms have persisted and she is unable to sleep due to the pain. She has tried using braces and other management options such as steroid injections, however she has had no relief. 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 Denies any fevers, chills, sore throat, cough, dyspnea, chest pain, palpitations, abdominal pain, nausea, vomiting, diarrhea, back pain, or headaches. MD Complaint: extremity pain, extremity swelling History of Same: Yes Associated Symptoms: denies other symptoms - Related Data Home Medications Medication Instructions Recorded Confirmed Aspirin EC [Ecotrin Low Dose] 81 mg PO DAILY 10/31/20 04/13/21 Pedi Multivit No.25/Folic Acid 2 tab PO DAILY 04/12/21 04/13/21 [Flintstones Multivit Chew Tab] Previous Rx's Medication Instructions Recorded HYDROcodone/APAP 7.5-325MG [[place] 1 tab PO Q4H PRN 3 Days #18 tab 04/15/21 7.5-325] Ibuprofen [Motrin] 600 mg PO Q6HR #40 tab 04/15/21 predniSONE 10 mg PO DAILY 14 Days #21 tab 06/16/22 Allergies Allergy/AdvReac Type Severity Reaction Status Date / Time No Known Allergies Allergy Verified 06/16/22 05:14 Review of Systems ROS Statement: Those systems with pertinent positive or pertinent negative responses have been documented in the HPI. ROS Other: All systems not noted in ROS Statement are negative. Past Medical History Additional Past Medical History / Comment(s): FREQUENT UTI"S, GERD DURING . carpal tunnel History of Any Multi-Drug Resistant Organisms: None Reported Past Surgical History: Appendectomy, Breast Surgery, Section Additional Past Surgical History / Comment(s): SURGERY FOR RUPTURED OVARIAN ABSCESS WITH APPENDECTOMY Past Anesthesia/Blood Transfusion Reactions: No Reported Reaction, Motion Sickness Past Psychological History: No Psychological Hx Reported Smoking Status: Current every day smoker Past Alcohol Use History: None Reported Past Drug Use History: None Reported - Past Family History Mother Family Medical History: No Reported History General Exam Limitations: no limitations General appearance: alert, in no apparent distress Head exam: Present: atraumatic, normocephalic, normal inspection Respiratory exam: Present: normal lung sounds bilaterally. Absent: respiratory distress, wheezes, rales, rhonchi, stridor Cardiovascular Exam: Present: regular rate, normal rhythm, normal heart sounds. Absent: systolic murmur, diastolic murmur, rubs, gallop, clicks Extremities exam: Present: other (Pain and swelling to fingers 3 and 4 on the bilateral hands, right worse than left. Decreased sensation on fingers 3 and 4 bilaterally. Positive Phalen's test bilaterally and positive Tinel's on the right. 2+ radial pulses bilaterally.) Neurological exam: Present: alert, oriented X3, CN II-XII intact Psychiatric exam: Present: normal affect, normal mood Skin exam: Present: warm, dry, intact, normal color. Absent: rash Course Vital Signs 06/16/22 06/16/22 05:14 08:00 Temperature 97.7 F Pulse Rate 77 67 Respiratory 16 18 Rate Blood Pressure 126/84 110/79 O2 Sat by Pulse 98 99 Oximetry Medical Decision Making - Medical Decision Making This is a 37-year-old female who presents to the emergency department for bilateral hand pain. Her symptoms and the associated positive Tinel's and Phalen's sign, are consistent with carpal tunnel syndrome. Will obtain x-ray and baseline lab work to rule out other contributing factors, as her symptoms are more severe than they have been in the past. X-rays obtained, and these revealed no acute findings or signs of an inflammatory arthritis. CBC reveals no leukocytosis, the patient is afebrile, and she has no systemic symptoms to suggest an infectious process. Discussed with the patient these findings, and that her symptoms are most likely related to a severe case of carpal tunnel syndrome. She was treated with Toradol and Decadron in the emergency department. Patient was given information for follow-up with Dr. Sinha, hand specialist at [facility], to discuss definitive management, such as surgery, for ongoing carpal tunnel symptoms. Prescription for a two-week course of prednisone taper was provided for symptomatic management as well. Return precautions reviewed in depth, the patient is instructed to return to the emergency department with any new, worsening, or concerning symptoms. Patient verbalized understanding. This case was discussed in detail with the attending ED physician. Presentation, findings, and treatment plan discussed in detail as well. - Lab Data Result diagrams: 06/16/22 06:37 06/16/22 06:37 Lab Results 06/16/22 06/16/22 Range/Units 06:37 06:37 WBC 8.2 (3.8-10.6) k/uL RBC 4.13 (3.80-5.40) m/uL Hgb 12.7 (11.4-16.0) gm/dL Hct 39.0 (34.0-46.0) % MCV 94.3 (80.0-100.0) fL MCH 30.8 (25.0-35.0) pg MCHC 32.7 (31.0-37.0) g/dL RDW 13.4 (11.5-15.5) % Plt Count 207 (150-450) k/uL MPV 9.4 Neutrophils % 71 % Lymphocytes % 18 % Monocytes % 6 % Eosinophils % 4 % Basophils % 1 % Neutrophils # 5.9 (1.3-7.7) k/uL Lymphocytes # 1.5 (1.0-4.8) k/uL Monocytes # 0.5 (0-1.0) k/uL Eosinophils # 0.3 (0-0.7) k/uL Basophils # 0.0 (0-0.2) k/uL Sodium 139 (137-145) mmol/L Potassium 3.5 (3.5-5.1) mmol/L Chloride 109 H (98-107) mmol/L Carbon Dioxide 21 L (22-30) mmol/L Anion Gap 9 mmol/L BUN 11 (7-17) mg/dL Creatinine 0.50 L (0.52-1.04) mg/dL Est GFR (CKD-EPI)AfAm >90 (>60 ml/min/1.73 sqM) Est GFR (CKD-EPI)NonAf >90 (>60 ml/min/1.73 sqM) Glucose 103 H (74-99) mg/dL Calcium 8.2 L (8.4-10.2) mg/dL Magnesium 1.8 (1.6-2.3) mg/dL Total Bilirubin 0.3 (0.2-1.3) mg/dL AST 22 (14-36) U/L ALT 15 (4-34) U/L Alkaline Phosphatase 88 (38-126) U/L C-Reactive Protein 0.8 (<1.0) mg/dL Total Protein 6.1 L (6.3-8.2) g/dL Albumin 3.5 (3.5-5.0) g/dL TSH 0.784 (0.465-4.680) mIU/L - Radiology Data Radiology results: report reviewed, image reviewed Disposition Clinical Impression: CTS (carpal tunnel syndrome) Disposition: HOME SELF-CARE Instructions (If sedation given, give patient instructions): Paresthesia (ED), Carpal Tunnel Surgery (DC) Additional Instructions: Return to the emergency department with any new, worsening, or concerning symptoms. Take the prednisone as 2 tablets (20mg) for 7 days followed by 1 tablet (10mg) for [address] Sinha's office to discuss definitive management options for your ongoing symptoms. Prescriptions: predniSONE 10 mg PO DAILY 14 Days #21 tab Is patient prescribed a controlled substance at d/c from ED?: No Referrals: None,Stated [Primary Care Provider] - 1-2 days Jim Sinha DO [Doctor of Osteopathic Medicine] - 1-2 days
--- NOTE | 2022-06-16 06:40 | XR ---
EXAMINATION TYPE: XR hand complete bilateral DATE OF EXAM: 06/16/2022 COMPARISON: NONE HISTORY: Pain TECHNIQUE: 3 views each hand FINDINGS: The metacarpals are intact. There are no erosions. Joint spaces are normal. Carpal bones ar e intact. Intercarpal joint spaces are normal. No subluxation. There is no osteopenia. IMPRESSION: Negative bilateral hand exam. No sign of inflammatory arthritis.
[2022-06-16 06:43] LABS: Basophils % (A) 1 %; Eosinophils # (A) 0.3 k/uL (0-0.7); Eosinophils % (A) 4 %; HGB 12.7 gm/dL (11.4-16.0); Lymphocytes # (A) 1.5 k/uL (1.0-4.8); Lymphocytes % (A) 18 %; MCH 30.8 pg (25.0-35.0); MCHC 32.7 g/dL (31.0-37.0); MCV 94.3 fL (80.0-100.0); Mean Platelet Volume 9.4; Monocytes # (A) 0.5 k/uL (0-1.0); Monocytes % (A) 6 %; Neutrophils # (A) 5.9 k/uL (1.3-7.7); Neutrophils % (A) 71 %; Platelet Count 207 k/uL (150-450); RBC 4.13 m/uL (3.80-5.40); RDW 13.4 % (11.5-15.5); WBC 8.2 k/uL (3.8-10.6)
[2022-06-16 07:02] LABS: ALT 15 U/L (4-34); AST 22 U/L (14-36); African American GFR (CKD) >90 (>60 ml/min/1.73 sqM); Albumin 3.5 g/dL (3.5-5.0); Alkaline Phosphatase 88 U/L (38-126); Anion Gap 9 mmol/L; Blood Urea Nitrogen 11 mg/dL (7-17); Calcium 8.2 mg/dL (8.4-10.2); Carbon Dioxide 21 mmol/L (22-30); Chloride 109 mmol/L (98-107); Glucose 103 mg/dL (74-99); Magnesium 1.8 mg/dL (1.6-2.3); Non-African American GFR(CKD) >90 (>60 ml/min/1.73 sqM); Sodium 139 mmol/L (137-145); Total Bilirubin 0.3 mg/dL (0.2-1.3); Total Protein 6.1 g/dL (6.3-8.2)
[2022-06-16 07:24] LABS: Potassium 3.5 mmol/L (3.5-5.1)
[2022-06-16 07:37] LABS: C Reactive Protein 0.8 mg/dL (<1.0)
[2022-06-16 08:01] VITALS: BP 110/79; PULSE 67; RESP 18
[2022-06-16 08:49] LABS: Erythrocyte Sedimentation Rate 12 mm/hr (0-20)
== END 2022-06-16 07:56 | disposition home or self-care (01) ==
LOC: EC 05:07
DX: G56.03 Carpal tunnel syndrome, bilateral upper limbs (principal); F17.200 Nicotine dependence, unspecified, uncomplicated
CPT/HCPCS: 36415; 80053; 85652; 84443; 83735; 85025; 86140; 73130; 99283; 96374; 96375; J1100; J1885

== ENCOUNTER 2022-07-19 13:34 | Day surgery (SDC) | payer OTHER ==
--- NOTE | 2022-07-18 08:12 | P.HPOR ---
History of Present Illness H&P Date: 07/18/22 Chief Complaint: Right carpal tunnel/cubital tunnel syndrome Subjective: This is a 42 year old male that presents today for initial evaluation regarding progressively worsening bilateral hand paresthesias and weakness. 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 He denies any injury and states he had a recent EMG/NCV. He is currently still working but as an instructor. He states his paresthesias involve the entire hand. Physical Examination: LUE: AIN/PIN/Radial/Ulnar/Median motor intact. Radial/Ulnar/Median SILT. 2+/4 Radial/Ulnar pulses palpated. 5/5 APB, 5/5 FDI. Negative Finkelsteins, negative CMC grind, positive Durkan's compression. Paresthesias in ring and small finger with prolonged elbow flexion. RUE: AIN/PIN/Radial/Ulnar/Median motor intact. Radial/Ulnar/Median SILT. 2+/4 Radial/Ulnar pulses palpated. 5/5 APB, 5/5 FDI. Negative Finkelsteins, negative CMC grind, positive Durkan's compression. Paresthesias in ring and small finger with prolonged elbow flexion. Imaging/NCV/EMG: EMG/NCV shows bilateral cubital tunnel syndrome Impression: 1.) B/L cubital tunnel syndrome 2.) B/L carpal tunnel syndrome Plan: Diagnosis and treatment options were discussed with the patient. Nerve testing findings were discussed with the patient. We discussed he has physical exam sides of both carpal and cubital tunnel syndrome. Due to his progressively worsening symptoms despite rest and anti-inflammatories I recommend surgical intervention with right endoscopic vs open carpal tunnel release and right open cubital tunnel release. Risks and benefits of surgery including bleeding, infection, damage to surrounding tissue, need for further surgery, possible need to convert to open procedure, residual numbness were discussed and the patient wished to go forward with surgery. 4 weeks of work off will be anticipated after surgery. He would like to pursue the right side surgery first and may continue current work restrictions with no lifting/pushing or pressing with his hands and to remain as an instructor until surgery in the near future. -Jim Sinha DO Orthopedic Hand/Upper Extremity Surgeon Past Medical History Additional Past Medical History / Comment(s): FREQUENT UTI BILATERAL carpal tunnel PAIN History of Any Multi-Drug Resistant Organisms: None Reported Past Surgical History: Appendectomy, Breast Surgery, Section Additional Past Surgical History / Comment(s): BILATERAL BREAST BX (NEG). SURG KARIN FOR RUPTURED OVARIAN ABSCESS WITH APPENDECTOMY Past Anesthesia/Blood Transfusion Reactions: No Reported Reaction, Motion Sickness, Postoperative Nausea & Vomiting (PONV) Past Psychological History: No Psychological Hx Reported Smoking Status: Current every day smoker Past Alcohol Use History: None Reported Additional Past Alcohol Use History / Comment(s): SMOKES 1/2 PPD, STARTED SMOKING AGE 13-14. Past Drug Use History: None Reported - Past Family History Mother Family Medical History: No Reported History Medications and Allergies Home Medications Medication Instructions Recorded Confirmed Type Ibuprofen [Motrin] 600 mg PO Q6HR #40 tab 04/15/21 07/17/22 Rx Allergies Allergy/AdvReac Type Severity Reaction Status Date / Time No Known Allergies Allergy Verified 07/17/22 11:22 Physical Examination Osteopathic Statement: *. No significant issues noted on an osteopathic structural exam other than those noted in the History and Physical/Consult.
[~2022-07-19 13:34] MED LIST: HYDROmorphone 0.5 MG/0.5 ML SYRINGE IVP PRN; LACTATED RINGERS 1,000 ML IV SCH; Pre Op ABX Message 1 EACH MISC MISCELLANE ONE
[2022-07-19 13:59] VITALS: RESP 16
[2022-07-19] MEDS ORDERED: ONDANSETRON 4 MG/2 ML VIAL ONE (14:02)
[2022-07-19] MEDS ORDERED: LIDOCAINE 1% (10MG/ML) FOR IV START INTRADERMA ONE (14:13)
[2022-07-19] MEDS ORDERED: DEXAMETHASONE SOD PHOSPHATE 4 MG/ML 1 ML VIAL IV ONE (14:14)
[2022-07-19] MEDS ORDERED: ONDANSETRON 4 MG/2 ML VIAL IVP ONE (14:16)
[2022-07-19] MEDS ORDERED: LIDOCAINE 2% INJ 20 MG/ML (2 ML VIAL) ONE (16:01)
[2022-07-19] MEDS ORDERED: fentaNYL (PF) 50 MCG/ML 2 ML AMP ONE (16:01)
[2022-07-19] MEDS ORDERED: MIDAZOLAM 2 MG/2 ML VIAL ONE (16:01)
[2022-07-19] MEDS ORDERED: PROPOFOL 10 MG/ML 20 ML VIAL IV ONE (16:01)
[2022-07-19] MEDS ORDERED: LIDOCAINE 1% INJ 10MG/ML (30 ML VIAL-PF) SQ ONE (16:04)
[2022-07-19] MEDS ORDERED: BUPIVACAINE (PF) 0.5% 30 ML VIAL SQ ONE (16:04)
[2022-07-19 17:11] VITALS: TEMP 97
--- NOTE | 2022-07-19 17:14 | P.HPOR ---
History of Present Illness H&P Date: 07/19/22 Chief Complaint: Right carpal/cubital tunnel syndrome Subjective: This is a 37 year old female that presents today for initial evaluation regarding a several year history of worsening bilateral hand paresthesias. 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 She notes pain and burning in all of the finger tips and her paresthesias are worse in the middle and ring fingers but often involve the small and index finger as well. She has tried night splints with little relief as well as oral steroids. She notes she has been dropping things and has developed weakness in the hands, the right is equal to the left in severity and she is RHD. Physical Examination: RUE: AIN/PIN/Radial/Ulnar/Median motor intact. Radial/Ulnar/Median SILT. 2+/4 Radial/Ulnar pulses palpated. 5/5 APB, 5/5 FDI. Negative Finkelsteins, negative CMC grind, positive Durkan's compression. Ring and small finger paresthesias reproduced with prolonged elbow flexion. LUE: AIN/PIN/Radial/Ulnar/Median motor intact. Radial/Ulnar/Median SILT. 2+/4 Radial/Ulnar pulses palpated. 5/5 APB, 5/5 FDI. Negative Finkelsteins, negative CMC grind, positive Durkan's compression. Ring and small finger paresthesias reproduced with prolonged elbow flexion. Impression: 1.) Right carpal tunnel syndrome 2.) Right cubital tunnel syndrome 3.) Left carpal tunnel syndrome 4.) Left cubital tunnel syndrome Plan: Diagnosis and treatment options were discussed with the patient. She has worsening hand paresthesias involving the entire hand that has failed to respond to conservative treatment. She would like to pursue surgery in the form of right endoscopic vs open carpal tunnel release and right open cubital tunnel release. Risks and benefits of surgery including bleeding, infection, damage to surrounding tissue, need for further surgery, possible need to convert to open procedure, residual numbness were discussed and the patient wished to go forward with surgery. I anticipate 4 weeks off of work post operatively. Once she is healed on the right side we will schedule her left sided procedure. She expressed understanding and was agreeable with this plan of action. -Jim Sinha DO Orthopedic Hand/Upper Extremity Surgeon Past Medical History Additional Past Medical History / Comment(s): FREQUENT UTI BILATERAL carpal tunnel PAIN History of Any Multi-Drug Resistant Organisms: None Reported Past Surgical History: Appendectomy, Breast Surgery, Section Additional Past Surgical History / Comment(s): BILATERAL BREAST BX (NEG). SURGERY FOR RUPTURED OVARIAN ABSCESS WITH APPENDECTOMY Past Anesthesia/Blood Transfusion Reactions: No Reported Reaction, Motion Sickness, Postoperative Nausea & Vomiting (PONV) Past Psychological History: No Psychological Hx Reported Smoking Status: Current every day smoker Past Alcohol Use History: None Reported Additional Past Alcohol Use History / Comment(s): SMOKES 1/2 PPD, STARTED SMOKING AGE 13-14. Past Drug Use History: None Reported - Past Family History Mother Family Medical History: No Reported History Medications and Allergies Home Medications Medication Instructions Recorded Confirmed Type Ibuprofen [Motrin] 600 mg PO Q6HR #40 tab 04/15/21 07/19/22 Rx HYDROcodone/APAP 5-325MG [[place] 1 tab PO Q6HR PRN 3 Days #18 tab 07/19/22 Rx 5-325] Allergies Allergy/AdvReac Type Severity Reaction Status Date / Time No Known Allergies Allergy Verified 07/19/22 14:00 Physical Examination Osteopathic Statement: *. No significant issues noted on an osteopathic structural exam other than those noted in the History and Physical/Consult.
[2022-07-19] MEDS ORDERED: HYDROcodone/APAP 5-325MG 1 EACH TAB PO ONE (17:46)
[2022-07-19] MEDS ORDERED: HYDROcodone/APAP 5-325MG 1 EACH TAB ONE (17:46)
[2022-07-19 17:58] VITALS: BP 139/86; PULSE 82
--- NOTE | 2022-07-21 06:48 | P.OP ---
Date of Procedure: 07/19/22 Preoperative Diagnosis: 1.) Right carpal tunnel syndrome 2.) Right cubital tunnel syndrome Postoperative Diagnosis: 1.) Right carpal tunnel syndrome 2.) Right cubital tunnel syndrome Procedure(s) Performed: 1.) Right endoscopic carpal tunnel release 2.) Right open cubital tunnel release Anesthesia: CRISTÓBAL Surgeon: Jim Sinha Gluten Settling Tender #1: Mckay Alonzo Estimated Blood Loss (ml): 10 Pathology: none sent Condition: stable Disposition: PACU Description of Procedure: This is a 37 year old female who presented today for a right endoscopic carpal tunnel release and open cubital tunnel release after having failed conservative treatment. Risks and benefits of surgery were discussed with the patient including bleeding, damage to surrounding tissue, infection, need for further surgery as well as risks of anesthesia including pulmonary embolism and even jono th and the patient wished to proceed with surgical intervention. The patient was seen in the pre-operative area by myself. Consent and H&P were completed and updated. The correct extremity was marked in the pre-operative area by myself and all other questions were answered. Operative Narrative: The patient was brought to the operating room by the department of anesthesia. They remained on the portable stretcher and a rolling hand table was brought to the side of the operative extremity. Pre-operative time out was performed indicating the correct patient, procedure and laterality. All in the room agreed. Pre-operative antibiotics were given prior to skin incision. The patient was then drifted off to sleep by the department of anesthesia. A nonsterile tourniquet was then applied to the operative extremity and the right upper extremity was then prepped and draped in normal sterile fashion. The operative extremity was the exsanguinated with an esmarch bandage and the tourniquet was inflated to 250mmHg. 15 blade scalpel was utilized to make a transverse incision on the palmar skin just ulnar to the palmaris longus tendon at the level of the distal wrist crease. Ragnell retractor was then placed radially and blunt dissection was performed to reveal the distal forearm fascia. This was lifted with fine Khurram pick ups and Littler tenotomy scissors were then used to open the forearm fascia transversely and a double skin hook was then placed. Hamate finder was placed into the carpal tunnel and then sequential sized dilators were inserted followed by the synovial elevator to separate the flexor tenosynovium from the undersurface of the transverse carpal ligament and a washboard texture was felt. The MicroAire endoscopic carpal tunnel release system gun was the then inserted into the carpal tunnel hugging the deep portion of the transverse carpal ligament in line with the base of the ring finger. Transverse fibers of the ligament were directly visualized. Pressure was applied on the palm to reveal the distal extent of the transverse carpal ligament. The blade was then deployed and the distal half of the transverse carpal ligament was released. The scope was then brought distal again and remaining transverse fibers were incised with the blade. The proximal half of the transverse carpal ligament was then divided and again the scope was advanced distal and remaining transverse fibers were incised with the blade. The radial and ulnar leaflets were directly visualized and mobile consistent with complete release. Tenotomy scissors were then utilized to release the remaining distal forearm fascia under direct visualization taking care to preserve the palmar cutaneous branch of the median nerve. Attention was brought to the medial elbow. 15 blade scalpel was used to incise skin in between the medial epicondyle and olecranon in a curvlinear and longitudinal fashion. Blunt dissection was taken down through subcutaneous tissue with tenotomy scissors and branches of the MABCN were identified and protected. Dissection was carried proximally and the ulnar nerve was identified and released in it's entirety to the intermuscular septum. Dissection was then carried distally and banks's ligament was released at the medial epicondyle, the nerve appeared compressed at this location. Dissection was then carried out further distal and the fascia of the two heads of the FCU were incised and the ulnar nerve was decompressed with [place] and tenotomy scissors and appeared to be tension free. The elbow was the flexed and extended and the ulnar nerve appeared to be stable in a tension free manner 20ccs 0.5% bupivacaine was injected into the subcutaneous tissues. Skin closure was performed with interrupted 4-0 Monocryl sutures followed by running 4-0 Monocryl sutures, tourniquet was then let down and the hand had immediate perfusion. The patient was then woken by the department of anesthesia and transferred to PACU in stable condition. Mckay DIAL was present for the case to assist in protection of neurovascular structures and other major portions of the case. Jim Sinha D.O. Orthopedic Hand/Upper Extremity Surgeon
== END 2022-07-19 18:23 | disposition home or self-care (01) ==
LOC: OR 13:34
PROVIDERS: ATTEND Orthopaedic Surgery Hand Surgery
DX: G56.03 Carpal tunnel syndrome, bilateral upper limbs (principal); G56.23 Lesion of ulnar nerve, bilateral upper limbs; Z87.440 Personal history of urinary (tract) infections; Z90.721 Acquired absence of ovaries, unilateral; Z90.49 Acquired absence of other specified parts of digestive tract; F17.200 Nicotine dependence, unspecified, uncomplicated
CPT/HCPCS: 81025; 29848; 64718; J2250; J1100; J2405; J2001 ×2; J3010; J2704; J1170